=== PATIENT | female | born 1990 | race Caucasian/White ===

== ENCOUNTER 2017-06-26 23:33 | Emergency (ER) | payer BC ==
[2017-06-27 00:04] LABS: CHLORIDE,CL 106 mEq/L (98-106); SODIUM,NA 143 mEq/L (136-145)
--- NOTE | 2017-06-27 00:09 | EDM.PDOC ---
ED HPI GENERAL MEDICAL PROBLEM - General Chief Complaint: Abdominal Pain Stated Complaint: LLQ PAIN Time Seen by Provider: 06/27/17 00:00 Source of Information: Reports: Patient History Limitations: Reports: No Limitations - History of Present Illness INITIAL COMMENTS - FREE TEXT/NARRATIVE: patient presents to ER with a 24 hour history of LLQ pain . States started yesterday and has been getting worse. Initially thought it was period cramps but more severe. Last LMP 05-29-2017. No history of ovarian cysts. She denies vomiting, diarrhea or constipation. No blood in her stools. No fevers. [place] mildly nauseated and dizzy at times. No food intolerance or heartburn. Onset: Gradual Duration: Day(s): Location: Reports: Abdomen Quality: Reports: Sharp Severity: Moderate Associated Symptoms: Reports: Nausea/Vomiting. Denies: Cough, Diaphoresis, Fever/Chills, Loss of Appetite, Seizure, Shortness of Breath Left Lower Abdomen Pain Score (Numeric/FACES): 6 - Related Data Allergies Allergy/AdvReac Type Severity Reaction Status Date / Time No Known Allergies Allergy Verified 06/26/17 23:36 Home Meds: Home Meds . 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: - Past Surgical History Female Surgical History: Reports: Section Musculoskeletal Surgical History: Reports: Other (See Below) Other Musculoskeletal Surgeries/Procedures:: ankle surg Social & Family History - Family History Family Medical History: Noncontributory - Tobacco Use Smoking Status *Q: Never Smoker Second Hand Smoke Exposure: No ED ROS GENERAL - Review of Systems Review Of Systems: See Below Constitutional: Denies: Fever, Chills, Malaise, Weakness, Decreased Appetite HEENT: Reports: No Symptoms Respiratory: Denies: Shortness of Breath, Cough Cardiovascular: Denies: Chest Pain, Edema, Lightheadedness Endocrine: Denies: Fatigue GI/Abdominal: Reports: Abdominal Pain, Nausea. Denies: Black Stool, Bloody Stool, Constipation, Diarrhea, Vomiting : Denies: Dysuria, Frequency, Irregular Menses Musculoskeletal: Reports: No Symptoms Skin: Reports: No Symptoms Neurological: Reports: No Symptoms Psychiatric: Reports: No Symptoms ED EXAM, GENERAL - Physical Exam Exam: See Below Exam Limited By: No Limitations General Appearance: Alert, WD/WN, No Apparent Distress Ears: Normal External Exam, Normal TMs Nose: Normal Inspection, Normal Mucosa, No Blood Throat/Mouth: Normal Inspection, Normal Oropharynx Head: Normocephalic Neck: Normal Inspection, Supple, Non-Tender Respiratory/Chest: No Respiratory Distress, Lungs Clear, Normal Breath Sounds Cardiovascular: Normal Peripheral Pulses, Regular Rate, Rhythm GI/Abdominal: Normal Bowel Sounds, Soft, Tender (LLQ) Extremities: Normal Inspection, Normal Capillary Refill Neurological: Alert, Oriented Psychiatric: Normal Affect, Normal Mood Course - Vital Signs Last Recorded V/S: Last Vital Signs Temp 99 F 06/26/17 23:50 Pulse 77 06/26/17 23:50 Resp 18 06/26/17 23:50 BP 142/85 H 06/26/17 23:50 Pulse Ox 98 06/26/17 23:50 - Orders/Labs/Meds Orders: Active Orders 24 hr Category Date Time Status Abdomen 2V AP Flat Upright [CR] Stat Exams 06/26/17 23:46 Taken Labs: Laboratory Tests 06/26/17 06/26/17 06/26/17 Range/Units 23:45 23:45 23:48 WBC 11.5 H (5.0-10.0) 10^3/uL RBC 4.87 (4.00-5.50) 10^6/uL Hgb 12.4 (12.0-16.0) g/dL Hct 38.2 (37.0-47.0) % MCV 78.4 L (82.0-94.0) fL MCH 25.5 L (27.0-32.0) pg MCHC 32.5 L (33.0-38.0) g/dL RDW Coeff of Ariela 15.8 H (11.0-15.0) % Plt Count 342 (150-400) 10^3/uL Neut % (Auto) 77.4 (35-85) % Lymph % (Auto) 15.9 (10-55) % [place] % (Auto) 5.7 (0-16) % Eos % (Auto) 0.7 (0-5) % Baso % (Auto) 0.3 (0-3) % Neut # (Auto) 8.90 H (1.80-7.00) 10^3/uL Lymph # (Auto) 1.83 (1.00-4.80) 10^3/uL [place] # (Auto) 0.66 (0.00-0.80) 10^3/uL Eos # (Auto) 0.08 (0.00-0.45) 10^3/uL Baso # (Auto) 0.03 10^3/uL Sodium (136-145) mEq/L Potassium (3.5-5.0) mEq/L Chloride (98-106) mEq/L Carbon Dioxide (21-32) mmol/L BUN (7-18) mg/dL Creatinine (0.6-1.0) mg/dL Est Cr Clr Drug Dosing mL/min Estimated GFR (MDRD) (>=60) mL/min Glucose (75-99) mg/dL Calcium (8.4-10.1) mg/dL C-Reactive Protein (0.2-0.8) mg/dL Urine Color Yellow (YELLOW) Urine Appearance Clear (CLEAR) Urine pH 5.5 (4.5-8.0) Ur Specific [place] >= 1.030 H (1.003-1.020) Urine Protein Negative (NEGATIVE) mg/dL Urine Glucose (UA) Negative (NEGATIVE) mg/dL Urine Ketones Negative (NEGATIVE) mg/dL Urine Occult Blood Trace-intact H (NEGATIVE) Urine Nitrite Negative (NEGATIVE) Urine Bilirubin Negative (NEGATIVE) Urine Urobilinogen 0.2 (0.2-1.0) EU/dL Ur Leukocyte Esterase Negative (NEGATIVE) Urine RBC Not seen (0-5) /HPF Urine WBC Not seen (0-5) /HPF Ur Epithelial Cells Few H (NOT SEEN) /HPF Urine Mucus Moderate H (NOT SEEN) /HPF Urine HCG, Qual Negative 06/26/17 Range/Units 23:48 WBC (5.0-10.0) 10^3/uL RBC (4.00-5.50) 10^6/uL Hgb (12.0-16.0) g/dL Hct (37.0-47.0) % MCV (82.0-94.0) fL MCH (27.0-32.0) pg MCHC (33.0-38.0) g/dL RDW Coeff of Ariela (11.0-15.0) % Plt Count (150-400) 10^3/uL Neut % (Auto) (35-85) % Lymph % (Auto) (10-55) % [place] % (Auto) (0-16) % Eos % (Auto) (0-5) % Baso % (Auto) (0-3) % Neut # (Auto) (1.80-7.00) 10^3/uL Lymph # (Auto) (1.00-4.80) 10^3/uL [place] # (Auto) (0.00-0.80) 10^3/uL Eos # (Auto) (0.00-0.45) 10^3/uL Baso # (Auto) 10^3/uL Sodium 143 (136-145) mEq/L Potassium 3.6 (3.5-5.0) mEq/L Chloride 106 (98-106) mEq/L Carbon Dioxide 24 (21-32) mmol/L BUN 12 (7-18) mg/dL Creatinine 0.9 (0.6-1.0) mg/dL Est Cr Clr Drug Dosing 92.11 mL/min Estimated GFR (MDRD) > 60 (>=60) mL/min Glucose 110 H (75-99) mg/dL Calcium 8.4 (8.4-10.1) mg/dL C-Reactive Protein 2.0 H (0.2-0.8) mg/dL Urine Color (YELLOW) Urine Appearance (CLEAR) Urine pH (4.5-8.0) Ur Specific [place] (1.003-1.020) Urine Protein (NEGATIVE) mg/dL Urine Glucose (UA) (NEGATIVE) mg/dL Urine Ketones (NEGATIVE) mg/dL Urine Occult Blood (NEGATIVE) Urine Nitrite (NEGATIVE) Urine Bilirubin (NEGATIVE) Urine Urobilinogen (0.2-1.0) EU/dL Ur Leukocyte Esterase (NEGATIVE) Urine RBC (0-5) /HPF Urine WBC (0-5) /HPF Ur Epithelial Cells (NOT SEEN) /HPF Urine Mucus (NOT SEEN) /HPF Urine HCG, Qual Meds: Medications Discontinued Medications Generic Name Dose Route Start Last Admin Trade Name Freq PRN Reason Stop Dose Admin Ketorolac Tromethamine 60 mg 06/27/17 00:30 06/27/17 00:35 Toradol IM 06/27/17 00:31 60 mg ONETIME ONE Administration Ketorolac Tromethamine Confirm 06/27/17 00:25 06/27/17 00:35 Toradol Administered 06/27/17 00:26 Not Given Dose 60 mg .ROUTE .STK-MED ONE - Re-Assessments/Exams Free Text/Narrative Re-Assessment/Exam: 06/27/17 00:28 Labs reviewed. Mildly elevated CRP and WBC. Will arrange a pelvic ultrasound in am. Departure - Departure Time of Disposition: 00:30 Disposition: Home, Self-Care 01 Clinical Impression: Abdominal pain Qualifiers: Abdominal location: left lower quadrant Qualified Code(s): R10.32 - Left lower quadrant pain - Discharge Information Referrals: Provider,Unknown [Ordering Only Provider] - Forms: ED Department Discharge Additional Instructions: 1. Rest 2. Push fluids 3. Will arrange for pelvic ultrasound in am and notify you of time 4. Tylenol or ibuprofen for discomfort. 5. Follow up for ongoing concerns - My Orders Last 24 Hours: My Active Orders 06/26/17 23:46 Abdomen 2V AP Flat Upright [CR] Stat - Assessment/Plan Last 24 Hours: My Active Orders 06/26/17 23:46 Abdomen 2V AP Flat Upright [CR] Stat
[2017-06-27] MEDS ORDERED: Ketorolac 60 MG/2 ML SDV ONE (00:25)
[2017-06-27 00:27] VITALS: BP 142/85
[2017-06-27] MEDS ORDERED: Ketorolac 60 MG/2 ML SDV IM ONE (00:30)
== END 2017-06-27 00:40 | disposition home or self-care (01) ==
LOC: CC.ED 23:33
DX: R10.32 Left lower quadrant pain (principal)
CPT/HCPCS: 36415; 74020; 80048; 81001; 81025; 85025; 86140; 96372; 99284; J1885; 76830

== ENCOUNTER 2017-08-09 18:06 | Emergency (ER) | payer BC, MEDICAID ==
[2017-08-09 18:08] VITALS: BP 147/89
--- NOTE | 2017-08-09 18:27 | EDM.PDOC ---
ED HPI GENERAL MEDICAL PROBLEM - General Chief Complaint: General Stated Complaint: vertigo Time Seen by Provider: 08/09/17 18:15 Source of Information: Reports: Patient History Limitations: Reports: No Limitations - History of Present Illness INITIAL COMMENTS - FREE TEXT/NARRATIVE: Patient presents today with sudden onset dizziness. 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 She believes it is related to being as the same thing happened to her in the past when she was . She did take a home test which was positive. Last LMP was over a month ago. She denies any head trauma. Has had mild sinus congestion, no facial pain. No fevers. No abdominal pain, diarrhea or urinary symptoms. 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 Denies: Ear Pain, Sinus Problem Respiratory: Denies: Shortness of Breath, Cough Cardiovascular: Denies: Chest Pain, Edema, Lightheadedness Endocrine: Denies: Fatigue GI/Abdominal: Reports: Nausea. Denies: Abdominal Pain, Vomiting : Reports: No Symptoms Musculoskeletal: Reports: No Symptoms Skin: Reports: No Symptoms Neurological: Reports: Dizziness, Headache Psychiatric: Reports: No Symptoms ED EXAM, GENERAL - Physical Exam Exam: See Below Exam Limited By: No Limitations General Appearance: Alert, WD/WN, Mild Distress Eye Exam: Bilateral Eye: EOMI Ears: Normal External Exam, Normal TMs Nose: Normal Inspection Throat/Mouth: Normal Inspection, Normal Oropharynx Head: Normocephalic Neck: Normal Inspection, Supple, Non-Tender Respiratory/Chest: No Respiratory Distress, Lungs Clear, Normal Breath Sounds Cardiovascular: Regular Rate, Rhythm GI/Abdominal: Normal Bowel Sounds, Soft, Non-Tender Extremities: Normal Inspection, Normal Range of Motion Neurological: Alert, Oriented, CN II-XII Intact, Other (No nystagmus noted.) Skin Exam: Warm, Dry Course - Vital Signs Last Recorded V/S: Last Vital Signs Temp 99 F 08/09/17 18:06 Pulse 100 08/09/17 18:06 Resp 18 08/09/17 18:06 BP 147/89 H 08/09/17 18:06 Pulse Ox 99 08/09/17 18:06 - Orders/Labs/Meds Orders: Active Orders 24 hr Category Date Time Status Lactated Ringers [Ringers, Lactated] 1,000 ml Med 08/09/17 18:30 Active IV ASDIRECTED Medication Orders Lactated Ringer's (Ringers, Lactated) 1,000 mls @ 500 mls/hr IV ASDIRECTED GLORIA Last Admin: 08/09/17 18:31 Dose: 500 mls/hr Labs: Laboratory Tests 08/09/17 08/09/17 08/09/17 Range/Units 18:16 18:19 18:19 WBC 9.7 (5.0-10.0) 10^3/uL RBC 4.29 (4.00-5.50) 10^6/uL Hgb 11.0 L (12.0-16.0) g/dL Hct 34.7 L (37.0-47.0) % MCV 80.9 L (82.0-94.0) fL MCH 25.6 L (27.0-32.0) pg MCHC 31.7 L (33.0-38.0) g/dL RDW Coeff of Ariela 16.4 H (11.0-15.0) % Plt Count 289 (150-400) 10^3/uL Neut % (Auto) 71.7 (35-85) % Lymph % (Auto) 19.8 (10-55) % [place] % (Auto) 6.6 (0-16) % Eos % (Auto) 1.6 (0-5) % Baso % (Auto) 0.3 (0-3) % Neut # (Auto) 6.95 (1.80-7.00) 10^3/uL Lymph # (Auto) 1.92 (1.00-4.80) 10^3/uL [place] # (Auto) 0.64 (0.00-0.80) 10^3/uL Eos # (Auto) 0.16 (0.00-0.45) 10^3/uL Baso # (Auto) 0.03 10^3/uL Sodium 139 (136-145) mEq/L Potassium 3.9 (3.5-5.0) mEq/L Chloride 106 (98-106) mEq/L Carbon Dioxide 25 (21-32) mmol/L BUN 9 (7-18) mg/dL Creatinine 0.8 (0.6-1.0) mg/dL Est Cr Clr Drug Dosing 103.63 mL/min Estimated GFR (MDRD) > 60 (>=60) mL/min Glucose 100 H (75-99) mg/dL Calcium 8.6 (8.4-10.1) mg/dL Total Bilirubin 0.2 (0.0-1.0) mg/dL AST 19 (15-37) U/L ALT 29 (12-78) U/L Alkaline Phosphatase 69 (46-116) U/L Total Protein 6.9 (6.4-8.2) g/dL Albumin 2.9 L (3.4-5.0) g/dL Urine Color (YELLOW) Urine Appearance (CLEAR) Urine pH (4.5-8.0) Ur Specific [place] (1.003-1.020) Urine Protein (NEGATIVE) mg/dL Urine Glucose (UA) (NEGATIVE) mg/dL Urine Ketones (NEGATIVE) mg/dL Urine Occult Blood (NEGATIVE) Urine Nitrite (NEGATIVE) Urine Bilirubin (NEGATIVE) Urine Urobilinogen (0.2-1.0) EU/dL Ur Leukocyte Esterase (NEGATIVE) Urine RBC (0-5) /HPF Urine WBC (0-5) /HPF Ur Squamous Epith Cells (NOT SEEN) /HPF Calcium Oxalate Crystal (NOT SEEN) /HPF Urine Bacteria (NOT SEEN) /HPF Urine Mucus (NOT SEEN) /HPF Urine HCG, Qual Positive 08/09/17 Range/Units 18:19 WBC (5.0-10.0) 10^3/uL RBC (4.00-5.50) 10^6/uL Hgb (12.0-16.0) g/dL Hct (37.0-47.0) % MCV (82.0-94.0) fL MCH (27.0-32.0) pg MCHC (33.0-38.0) g/dL RDW Coeff of Ariela (11.0-15.0) % Plt Count (150-400) 10^3/uL Neut % (Auto) (35-85) % Lymph % (Auto) (10-55) % [place] % (Auto) (0-16) % Eos % (Auto) (0-5) % Baso % (Auto) (0-3) % Neut # (Auto) (1.80-7.00) 10^3/uL Lymph # (Auto) (1.00-4.80) 10^3/uL [place] # (Auto) (0.00-0.80) 10^3/uL Eos # (Auto) (0.00-0.45) 10^3/uL Baso # (Auto) 10^3/uL Sodium (136-145) mEq/L Potassium (3.5-5.0) mEq/L Chloride (98-106) mEq/L Carbon Dioxide (21-32) mmol/L BUN (7-18) mg/dL Creatinine (0.6-1.0) mg/dL Est Cr Clr Drug Dosing mL/min Estimated GFR (MDRD) (>=60) mL/min Glucose (75-99) mg/dL Calcium (8.4-10.1) mg/dL Total Bilirubin (0.0-1.0) mg/dL AST (15-37) U/L ALT (12-78) U/L Alkaline Phosphatase (46-116) U/L Total Protein (6.4-8.2) g/dL Albumin (3.4-5.0) g/dL Urine Color Yellow (YELLOW) Urine Appearance Clear (CLEAR) Urine pH 6.0 (4.5-8.0) Ur Specific [place] >= 1.030 H (1.003-1.020) Urine Protein Trace H (NEGATIVE) mg/dL Urine Glucose (UA) Negative (NEGATIVE) mg/dL Urine Ketones Negative (NEGATIVE) mg/dL Urine Occult Blood Negative (NEGATIVE) Urine Nitrite Negative (NEGATIVE) Urine Bilirubin Negative (NEGATIVE) Urine Urobilinogen 0.2 (0.2-1.0) EU/dL Ur Leukocyte Esterase Negative (NEGATIVE) Urine RBC Not seen (0-5) /HPF Urine WBC Not seen (0-5) /HPF Ur Squamous Epith Cells Moderate H (NOT SEEN) /HPF Calcium Oxalate Crystal Many H (NOT SEEN) /HPF Urine Bacteria Few H (NOT SEEN) /HPF Urine Mucus Moderate H (NOT SEEN) /HPF Urine HCG, Qual Meds: Medications Generic Name Dose Route Start Last Admin Trade Name Freq PRN Reason Stop Dose Admin Lactated Ringer's 1,000 mls @ 500 mls/hr 08/09/17 18:30 08/09/17 18:31 Ringers, Lactated IV 500 mls/hr ASDIRECTED GLORIA Administration - Re-Assessments/Exams Free Text/Narrative Re-Assessment/Exam: 08/09/17 19:14 Lab results given. Positive for . Other labs negative except appears dehydrated per urine. 08/09/17 19:50 Patient feeling much improved, visiting with significant other now, resting without any nausea or vomiting. Departure - Departure Time of Disposition: 19:50 Disposition: Home, Self-Care 01 Condition: Good Clinical Impression: Dehydration, mild, - Discharge Information Referrals: PCP,None [Primary Care Provider] - Forms: ED Department Discharge Additional Instructions: 1. Push fluids 2. Schedule initial OB exam 3. Follow up if any ongoing concerns. - My Orders Last 24 Hours: My Active Orders 08/09/17 18:30 Lactated Ringers [Ringers, Lactated] 1,000 ml IV ASDIRECTED - Assessment/Plan Last 24 Hours: My Active Orders 08/09/17 18:30 Lactated Ringers [Ringers, Lactated] 1,000 ml IV ASDIRECTED
[2017-08-09] MEDS ORDERED: Lactated Ringers 1,000 ML IV SCH (18:30)
[2017-08-09 18:52] LABS: CHLORIDE,CL 106 mEq/L (98-106); SODIUM,NA 139 mEq/L (136-145)
== END 2017-08-09 20:35 | disposition home or self-care (01) ==
LOC: CC.ED 18:06
DX: O99.280 Endocrine, nutritional and metabolic diseases complicating pregnancy, unspecified trimester (principal); E86.0 Dehydration; Z98.890 Other specified postprocedural states
CPT/HCPCS: 36415; 80053; 81001; 81025; 85025; 96360; 96361; 99284; J7120

== ENCOUNTER 2017-08-29 21:15 | Emergency (ER) | payer BC, MEDICAID ==
[2017-08-29 21:21] VITALS: BP 151/76
[2017-08-29 21:50] LABS: CHLORIDE,CL 104 mEq/L (98-106); SODIUM,NA 138 mEq/L (136-145)
--- NOTE | 2017-08-29 22:46 | EDM.PDOC ---
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 The patient reports that for the last 3 days she has been having left abdominal pain. Patient reports this pain comes and goes. She reports it is mild 3/10 on the pain scale. The patient reports she is G2, P1, A0. She reports her last was in [place]. Patient reports she has also had lightheadedness since she has been about 9 weeks per patient. Patient reports nausea. She reports mild congestion. Denies krishnan, dizziness, v, d, f, cough, cp, soa, pelvic pain, vaginal bleeding, flank pain. Patient is alert and oriented. Stable. Onset Date: 08/26/17 Duration: Day(s): (3) Location: Reports: Abdomen. Denies: Back, Pelvis Quality: Reports: Ache Severity: Mild Improves with: Reports: None Worsens with: Reports: None Associated Symptoms: Reports: Nausea/Vomiting. 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 Female Surgical History: Reports: Section Musculoskeletal Surgical History: Reports: Other (See Below) Other Musculoskeletal Surgeries/Procedures:: ankle surg Social & Family History - Family History Family Medical History: Noncontributory - Tobacco Use Smoking Status *Q: Never Smoker Second Hand Smoke Exposure: No - Caffeine Use Caffeine Use: Reports: None - Recreational Drug Use Recreational Drug Use: No ED ROS GENERAL - Review of Systems Review Of Systems: See Below Constitutional: Reports: No Symptoms HEENT: Reports: No Symptoms Respiratory: Reports: No Symptoms Cardiovascular: Reports: No Symptoms Endocrine: Reports: No Symptoms GI/Abdominal: Reports: Abdominal Pain, Nausea, Other (No pelvic pain. No vaginal bleeding. No discharge. ). Denies: Vomiting : Reports: No Symptoms Musculoskeletal: Reports: No Symptoms Skin: Reports: No Symptoms Neurological: Reports: No Symptoms Psychiatric: Reports: No Symptoms ED EXAM, GI/ABD - Physical Exam Exam: See Below Exam Limited By: No Limitations General Appearance: Alert, WD/WN, No Apparent Distress Eyes: Bilateral: Normal Appearance Ears: Normal External Exam, Normal Canal, Hearing Grossly Normal, Normal TMs Nose: Normal Inspection, Normal Mucosa, No Blood Throat/Mouth: Normal Inspection, Normal Lips, Normal Teeth, Normal Gums, Normal Oropharynx, Normal Voice, No Airway Compromise Head: Atraumatic, Normocephalic Neck: Normal Inspection, Supple, Non-Tender, Full Range of Motion Respiratory/Chest: No Respiratory Distress, Lungs Clear, Normal Breath Sounds, No Accessory Muscle Use Cardiovascular: Normal Peripheral Pulses, Regular Rate, Rhythm, No Edema, No Gallop, No JVD, No Murmur, No Rub GI/Abdominal Exam: Soft, No Organomegaly, No Distention, No Abnormal Bruit, No Mass, Pelvis Stable, Tender (LLQ, mild. Lateral side mild. ) (Female) Exam: Deferred Rectal (Female) Exam: Deferred Back Exam: Normal Inspection, Full Range of Motion. No: CVA Tenderness (L), CVA Tenderness (R) Extremities: Normal Inspection, Normal Range of Motion, Non-Tender, No Pedal Edema, Normal Capillary Refill Neurological: Alert, Oriented Psychiatric: Normal Affect, Normal Mood Skin Exam: Warm, Dry, Intact, Normal Color, No Rash Lymphatic: No Adenopathy Course - Vital Signs Last Recorded V/S: Last Vital Signs Temp 97.8 F 08/29/17 21:17 Pulse 88 08/29/17 21:17 Resp 18 08/29/17 21:17 BP 151/76 H 08/29/17 21:17 Pulse Ox 100 08/29/17 21:17 - Orders/Labs/Meds Labs: Laboratory Tests 08/29/17 08/29/17 08/29/17 Range/Units 21:45 21:45 21:45 WBC 8.7 (5.0-10.0) 10^3/uL RBC 4.62 (4.00-5.50) 10^6/uL Hgb 11.9 L (12.0-16.0) g/dL Hct 37.3 (37.0-47.0) % MCV 80.7 L (82.0-94.0) fL MCH 25.8 L (27.0-32.0) pg MCHC 31.9 L (33.0-38.0) g/dL RDW Coeff of Ariela 15.6 H (11.0-15.0) % Plt Count 325 (150-400) 10^3/uL Neut % (Auto) 70.0 (35-85) % Lymph % (Auto) 22.6 (10-55) % [place] % (Auto) 6.0 (0-16) % Eos % (Auto) 1.2 (0-5) % Baso % (Auto) 0.2 (0-3) % Neut # (Auto) 6.06 (1.80-7.00) 10^3/uL Lymph # (Auto) 1.96 (1.00-4.80) 10^3/uL [place] # (Auto) 0.52 (0.00-0.80) 10^3/uL Eos # (Auto) 0.10 (0.00-0.45) 10^3/uL Baso # (Auto) 0.02 10^3/uL Sodium 138 (136-145) mEq/L Potassium 3.9 (3.5-5.0) mEq/L Chloride 104 (98-106) mEq/L Carbon Dioxide 27 (21-32) mmol/L BUN 8 (7-18) mg/dL Creatinine 0.8 (0.6-1.0) mg/dL Est Cr Clr Drug Dosing 103.63 mL/min Estimated GFR (MDRD) > 60 (>=60) mL/min Glucose 95 (75-99) mg/dL Calcium 9.2 (8.4-10.1) mg/dL Total Bilirubin 0.1 (0.0-1.0) mg/dL AST 14 L (15-37) U/L ALT 30 (12-78) U/L Alkaline Phosphatase 77 (46-116) U/L Total Protein 7.5 (6.4-8.2) g/dL Albumin 3.3 L (3.4-5.0) g/dL Amylase 36 (25-115) U/L Urine Color Light yellow (YELLOW) Urine Appearance Clear (CLEAR) Urine pH 6.0 (4.5-8.0) Ur Specific [place] 1.025 H (1.003-1.020) Urine Protein Negative (NEGATIVE) mg/dL Urine Glucose (UA) Negative (NEGATIVE) mg/dL Urine Ketones Negative (NEGATIVE) mg/dL Urine Occult Blood Trace-intact H (NEGATIVE) Urine Nitrite Negative (NEGATIVE) Urine Bilirubin Negative (NEGATIVE) Urine Urobilinogen 0.2 (0.2-1.0) EU/dL Ur Leukocyte Esterase Negative (NEGATIVE) Urine RBC Not seen (0-5) /HPF Urine WBC Not seen (0-5) /HPF Ur Squamous Epith Cells Few H (NOT SEEN) /HPF Urine Bacteria Few H (NOT SEEN) /HPF Urine HCG, Qual 08/29/17 Range/Units 21:45 WBC (5.0-10.0) 10^3/uL RBC (4.00-5.50) 10^6/uL Hgb (12.0-16.0) g/dL Hct (37.0-47.0) % MCV (82.0-94.0) fL MCH (27.0-32.0) pg MCHC (33.0-38.0) g/dL RDW Coeff of Ariela (11.0-15.0) % Plt Count (150-400) 10^3/uL Neut % (Auto) (35-85) % Lymph % (Auto) (10-55) % [place] % (Auto) (0-16) % Eos % (Auto) (0-5) % Baso % (Auto) (0-3) % Neut # (Auto) (1.80-7.00) 10^3/uL Lymph # (Auto) (1.00-4.80) 10^3/uL [place] # (Auto) (0.00-0.80) 10^3/uL Eos # (Auto) (0.00-0.45) 10^3/uL Baso # (Auto) 10^3/uL Sodium (136-145) mEq/L Potassium (3.5-5.0) mEq/L Chloride (98-106) mEq/L Carbon Dioxide (21-32) mmol/L BUN (7-18) mg/dL Creatinine (0.6-1.0) mg/dL Est Cr Clr Drug Dosing mL/min Estimated GFR (MDRD) (>=60) mL/min Glucose (75-99) mg/dL Calcium (8.4-10.1) mg/dL Total Bilirubin (0.0-1.0) mg/dL AST (15-37) U/L ALT (12-78) U/L Alkaline Phosphatase (46-116) U/L Total Protein (6.4-8.2) g/dL Albumin (3.4-5.0) g/dL Amylase (25-115) U/L Urine Color (YELLOW) Urine Appearance (CLEAR) Urine pH (4.5-8.0) Ur Specific [place] (1.003-1.020) Urine Protein (NEGATIVE) mg/dL Urine Glucose (UA) (NEGATIVE) mg/dL Urine Ketones (NEGATIVE) mg/dL Urine Occult Blood (NEGATIVE) Urine Nitrite (NEGATIVE) Urine Bilirubin (NEGATIVE) Urine Urobilinogen (0.2-1.0) EU/dL Ur Leukocyte Esterase (NEGATIVE) Urine RBC (0-5) /HPF Urine WBC (0-5) /HPF Ur Squamous Epith Cells (NOT SEEN) /HPF Urine Bacteria (NOT SEEN) /HPF Urine HCG, Qual Positive - Re-Assessments/Exams Free Text/Narrative Re-Assessment/Exam: 08/29/17 22:54 I will not emergently US patient. She has no elevated wbc, no vaginal bleeding, no pelvic pain or cramping, and only 9 wks. No indication of torsion, as no severe pain over ovary on palpation. Patient is in no distress and has had mild discomfort for 3 days. Educated to f/u with PCP or [facility] [employer] [facility]. Patient is also educated that if pain increases that she should return immediately. Departure - Departure Time of Disposition: 22:44 Disposition: Home, Self-Care 01 Condition: Good Clinical Impression: Qualifiers: Weeks of gestation: 9 weeks Qualified Code(s): Z3A.09 - 9 weeks gestation of - Discharge Information Forms: ED Department Discharge Additional Instructions: Followup with your primary care provider Followup with [facility] [facility]: May call [facility] for specialist Return to the ER for worsening of condition or any emergent concerns Increase fluid intake - Assessment/Plan Plan: PLEASE SEE RN NOTE FOR PFSH.
== END 2017-08-29 22:51 | disposition home or self-care (01) ==
LOC: CC.ED 21:15
DX: O99.89 Other specified diseases and conditions complicating pregnancy, childbirth and the puerperium (principal); R10.814 Left lower quadrant abdominal tenderness; Z3A.09 9 weeks gestation of pregnancy
CPT/HCPCS: 36415; 80053; 81001; 81025; 82150; 85025; 99284

== ENCOUNTER 2017-09-19 11:50 | Emergency (ER) | payer BC, MEDICAID ==
[2017-09-19 11:56] VITALS: BP 139/85
--- NOTE | 2017-09-19 12:37 | EDM.PDOC ---
ED HPI GENERAL MEDICAL PROBLEM - General Chief Complaint: Abdominal Pain Stated Complaint: PAIN ON LT SIDE/NAUSEA OFF AND ON Time Seen by Provider: 09/19/17 12:30 Source of Information: Reports: Patient History Limitations: Reports: No Limitations - History of Present Illness INITIAL COMMENTS - FREE TEXT/NARRATIVE: Has been having pain in the left abdomen for about 4 months. Comes and goes. Was evaluated about 3 weeks ago and was found to be constipation. Did feel better after having bowel movement. Pain is similar to previous episodes. Is almost 12 weeks . Is concerned that it may be related even though it started happening prior to getting . 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: - Past Surgical History Female Surgical History: Reports: Section Musculoskeletal Surgical History: Reports: Other (See Below) Other Musculoskeletal Surgeries/Procedures:: ankle surg Social & Family History - Family History Family Medical History: Noncontributory - Tobacco Use Smoking Status *Q: Never Smoker Second Hand Smoke Exposure: No - Caffeine Use Caffeine Use: Reports: None - Recreational Drug Use Recreational Drug Use: No ED ROS GENERAL - Review of Systems Review Of Systems: See Below Constitutional: Reports: No Symptoms Respiratory: Reports: No Symptoms Cardiovascular: Reports: No Symptoms GI/Abdominal: Reports: Abdominal Pain : Reports: Other (Is about 12 weeks ) Musculoskeletal: Reports: No Symptoms ED EXAM, GI/ABD - Physical Exam Exam: See Below Exam Limited By: No Limitations General Appearance: Alert, WD/WN, No Apparent Distress Nose: Normal Inspection Throat/Mouth: Normal Inspection Head: Atraumatic, Normocephalic Neck: Normal Inspection, Supple, Non-Tender, Full Range of Motion Respiratory/Chest: No Respiratory Distress, Lungs Clear, Normal Breath Sounds Cardiovascular: Regular Rate, Rhythm GI/Abdominal Exam: Normal Bowel Sounds, Soft, Non-Tender, No Organomegaly, No Mass. No: Guarding, Rigid, Rebound Skin Exam: Warm, Dry, Intact Course - Vital Signs Last Recorded V/S: Last Vital Signs Temp 97.7 F 09/19/17 11:52 Pulse 103 H 09/19/17 11:52 Resp 16 09/19/17 11:52 BP 139/85 09/19/17 11:52 Pulse Ox 98 09/19/17 11:52 - Orders/Labs/Meds Labs: Laboratory Tests 09/19/17 09/19/17 Range/Units 11:58 12:34 WBC 9.8 (5.0-10.0) 10^3/uL RBC 4.43 (4.00-5.50) 10^6/uL Hgb 11.7 L (12.0-16.0) g/dL Hct 35.8 L (37.0-47.0) % MCV 80.8 L (82.0-94.0) fL MCH 26.4 L (27.0-32.0) pg MCHC 32.7 L (33.0-38.0) g/dL RDW Coeff of Ariela 15.2 H (11.0-15.0) % Plt Count 270 (150-400) 10^3/uL Neut % (Auto) 75.9 (35-85) % Lymph % (Auto) 17.8 (10-55) % [place] % (Auto) 5.4 (0-16) % Eos % (Auto) 0.6 (0-5) % Baso % (Auto) 0.3 (0-3) % Neut # (Auto) 7.47 H (1.80-7.00) 10^3/uL Lymph # (Auto) 1.75 (1.00-4.80) 10^3/uL [place] # (Auto) 0.53 (0.00-0.80) 10^3/uL Eos # (Auto) 0.06 (0.00-0.45) 10^3/uL Baso # (Auto) 0.03 10^3/uL Urine Color Yellow (YELLOW) Urine Appearance Clear (CLEAR) Urine pH 5.5 (4.5-8.0) Ur Specific [place] >= 1.030 H (1.003-1.020) Urine Protein Negative (NEGATIVE) mg/dL Urine Glucose (UA) Negative (NEGATIVE) mg/dL Urine Ketones Negative (NEGATIVE) mg/dL Urine Occult Blood Trace-intact H (NEGATIVE) Urine Nitrite Negative (NEGATIVE) Urine Bilirubin Negative (NEGATIVE) Urine Urobilinogen 0.2 (0.2-1.0) EU/dL Ur Leukocyte Esterase Trace H (NEGATIVE) Urine RBC 0-5 (0-5) /HPF Urine WBC 0-5 (0-5) /HPF Ur Squamous Epith Cells Few H (NOT SEEN) /HPF Urine Bacteria Occasional H (NOT SEEN) /HPF Departure - Departure Time of Disposition: 13:14 Disposition: Home, Self-Care 01 Condition: Good Clinical Impression: Constipation Qualifiers: Constipation type: slow transit constipation Qualified Code(s): K59.01 - Slow transit constipation - Discharge Information Instructions: Constipation, Adult, [id number] Referrals: Karla Rosado PA-C [Primary Care Provider] - Forms: ED Department Discharge Additional Instructions: Push fluids as much as possible Miralax or clearlax daily for constipation IF pain continues then check with your OB DR or come to the clinic - Problem List & Annotations (1) Constipation SNOMED Code(s): 00018011 Code(s): K59.00 - CONSTIPATION, UNSPECIFIED Status: Acute Priority: High Current Visit: Yes Qualifiers: Constipation type: slow transit constipation Qualified Code(s): K59.01 - Slow transit constipation (2) SNOMED Code(s): 95869934 Code(s): Z34.90 - ENCNTR FOR SUPRVSN OF NORMAL , UNSP, UNSP TRIMESTER Status: Acute Priority: Low Current Visit: No Qualifiers: Weeks of gestation: 9 weeks Qualified Code(s): Z3A.09 - 9 weeks gestation of - Problem List Review Problem List Initiated/Reviewed/Updated: Yes
== END 2017-09-19 13:18 | disposition home or self-care (01) ==
LOC: CC.ED 11:50
DX: O99.89 Other specified diseases and conditions complicating pregnancy, childbirth and the puerperium (principal); K59.01 Slow transit constipation; Z3A.12 12 weeks gestation of pregnancy
CPT/HCPCS: 36415; 81001; 85025; 99283

== ENCOUNTER 2018-04-03 13:25 | Inpatient (IN) | payer MEDICAID ==
[2018-04-03] MEDS ORDERED: Albuterol 0.083% 2.5 MG/3 ML Neb Soln NEB ONE (13:45)
[2018-04-03 14:32] LABS: CHLORIDE,CL 107 mEq/L (98-106); SODIUM,NA 141 mEq/L (136-145)
[2018-04-03] MEDS ORDERED: oxyCODONE 5 MG Tab PO PRN (15:18)
[2018-04-03] MEDS ORDERED: Albuterol 0.083% 2.5 MG/3 ML Neb Soln NEB PRN (15:20)
[2018-04-03] MEDS ORDERED: Sodium Chloride 0.9% 10 ML Syringe FLUSH PRN (15:20)
[2018-04-03] MEDS ORDERED: cefTRIAXone 1 GM Vial IVPUSH SCH (15:20)
[2018-04-03] MEDS ORDERED: Azithromycin 500 MG in Sodium Chloride 0.9% 250 ML IV SCH (15:20)
[2018-04-03] MEDS ORDERED: Enoxaparin 40 MG/0.4 ML Syringe SUBCUT SCH (15:25)
--- NOTE | 2018-04-03 15:33 | EDM.PDOC ---
ED HPI GENERAL MEDICAL PROBLEM - General Chief Complaint: Respiratory Problem Stated Complaint: SOB Time Seen by Provider: 04/03/18 13:40 Source of Information: Reports: Patient History Limitations: Reports: No Limitations - History of Present Illness INITIAL COMMENTS - FREE TEXT/NARRATIVE: Denita is a 27 yo female who presents to the ER after initially being seen in the clinic with concerns of shortness of breath. Denita initially became short of breath roughly 11 days ago during her . She states she had spoke with Dr. Leo about the shortness of breath and was advised to follow up with her primary. She was found to being anemic and was started on ferrous sulfate 325mg twice a day. On discharge her Hgb was 7.2. She admits since delivery her shortness of breath gradually worsened. She was seen by myself on Friday, April 01. She stated she was only taking her iron supplementation once a day. On the she had an elevated D-dimer above 13 and we elected to do a CTA of the chest and was found to be negative for PE's. There was some concern of possible infiltrate and she was started on Ceftin. She returned today to the clinic and oxygen saturation was initially 78% after being ambulatory. She was given oxygen at 2 liters, which brought her O2 saturation to 89-90%. She has been afebrile. We elected to send her to the ER for monitoring and nebulizer treatment. 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 Denies: Fever HEENT: Reports: No Symptoms Respiratory: Reports: Shortness of Breath, Cough Cardiovascular: Reports: Dyspnea on Exertion, Lightheadedness. Denies: Chest Pain, Blood Pressure Problem GI/Abdominal: Reports: No Symptoms : Reports: No Symptoms Musculoskeletal: Reports: No Symptoms Neurological: Reports: Dizziness, Headache Psychiatric: Reports: Anxiety ED EXAM, GENERAL - Physical Exam Exam: See Below Exam Limited By: No Limitations General Appearance: Alert, Anxious, Mild Distress Eye Exam: Bilateral Eye: Normal Inspection, PERRL Ears: Normal External Exam, Normal Canal, Hearing Grossly Normal, Normal TMs Nose: Normal Inspection, Normal Mucosa, No Blood Throat/Mouth: Normal Inspection, Normal Lips, Normal Teeth, Normal Gums, Normal Oropharynx, Normal Voice, No Airway Compromise Head: Atraumatic, Normocephalic Neck: Normal Inspection, Supple Respiratory/Chest: Respiratory Distress (mild), Decreased Breath Sounds. No: Crackles, Rales, Rhonchi, Wheezing, Retractions Cardiovascular: Regular Rate, Rhythm, No Edema, No Murmur Extremities: Normal Inspection, No Pedal Edema, Normal Capillary Refill Neurological: Alert, Oriented, Normal Cognition Psychiatric: Anxious. No: Depressed Mood, Tearful Skin Exam: Warm, Dry, Intact, Normal Color EKG INTERPRETATION EKG Date: 04/03/18 Rhythm: NSR Course - Vital Signs Last Recorded V/S: Last Vital Signs Temp 98.9 F 04/03/18 14:53 Pulse 100 04/03/18 14:53 Resp 20 04/03/18 14:53 BP 153/85 H 04/03/18 14:53 Pulse Ox 93 L 04/03/18 14:53 - Orders/Labs/Meds Orders: Active Orders 24 hr Category Date Time Status RT Aerosol Therapy [RC] 0800,1200,1600,2000 Care 04/03/18 13:46 Active Chest 2V [CR] Stat Exams 04/03/18 13:46 Taken EKG 12 Lead [EK] Routine Ther 04/03/18 13:46 Ordered Medication Orders Acetaminophen (Tylenol) 650 mg PO Q4H PRN PRN Reason: Pain (Mild 1-3)/fever Albuterol (Proventil Neb Soln) 2.5 mg NEB Q2H PRN PRN Reason: Shortness Of Breath/wheezing Ceftriaxone Sodium (Rocephin) 1 gm IVPUSH DAILY@1200 [facility] Last Admin: 04/03/18 15:31 Dose: 1 gm Enoxaparin Sodium (Lovenox) 40 mg SUBCUT DAILY@1200 [facility] Last Admin: 04/03/18 15:31 Dose: 40 mg Azithromycin 500 mg/ Sodium (Chloride) 250 mls @ 250 mls/hr IV DAILY@1200 [facility] Non-Formulary Medication (Ferrous Sulfate [Iron]) 325 mg PO BID [facility] Non-Formulary Medication (Prenat Vit Comb.10/Iron/Fa/Dha [Vitafol-Ob + Dha]) 1 each PO DAILY [facility] Oxycodone HCl (Oxycodone) 5 - 10 mg PO Q6H PRN PRN Reason: Pain Sodium Chloride (Saline Flush) 10 ml FLUSH ASDIRECTED PRN PRN Reason: Keep Vein Open Labs: Laboratory Tests 04/03/18 04/03/18 Range/Units 13:46 13:46 WBC 11.0 H (5.0-10.0) 10^3/uL RBC 3.73 L (4.00-5.50) 10^6/uL Hgb 8.6 L (12.0-16.0) g/dL Hct 29.1 L (37.0-47.0) % MCV 78.0 L (82.0-94.0) fL MCH 23.1 L (27.0-32.0) pg MCHC 29.6 L (33.0-38.0) g/dL RDW Coeff of Ariela 18.1 H (11.0-15.0) % Plt Count 287 (150-400) 10^3/uL Neut % (Auto) 83.4 (35-85) % Lymph % (Auto) 11.2 (10-55) % [place] % (Auto) 3.9 (0-16) % Eos % (Auto) 1.2 (0-5) % Baso % (Auto) 0.3 (0-3) % Neut # (Auto) 9.20 H (1.80-7.00) 10^3/uL Lymph # (Auto) 1.23 (1.00-4.80) 10^3/uL [place] # (Auto) 0.43 (0.00-0.80) 10^3/uL Eos # (Auto) 0.13 (0.00-0.45) 10^3/uL Baso # (Auto) 0.03 10^3/uL Sodium 141 (136-145) mEq/L Potassium 3.4 L (3.5-5.0) mEq/L Chloride 107 H (98-106) mEq/L Carbon Dioxide 20 L (21-32) mmol/L BUN 9 (7-18) mg/dL Creatinine 0.8 (0.6-1.0) mg/dL Est Cr Clr Drug Dosing 102.72 mL/min Estimated GFR (MDRD) > 60 (>=60) mL/min Glucose 105 H (75-99) mg/dL Calcium 8.4 (8.4-10.1) mg/dL Total Bilirubin 0.5 (0.0-1.0) mg/dL AST 18 (15-37) U/L ALT 17 (12-78) U/L Alkaline Phosphatase 98 (46-116) U/L C-Reactive Protein 7.1 H (0.2-0.8) mg/dL Total Protein 6.5 (6.4-8.2) g/dL Albumin 2.5 L (3.4-5.0) g/dL Meds: Medications Generic Name Dose Route Start Last Admin Trade Name Freq PRN Reason Stop Dose Admin Acetaminophen 650 mg 04/03/18 15:20 Tylenol PO Q4H PRN Pain (Mild 1-3)/fever Albuterol 2.5 mg 04/03/18 15:20 Proventil Neb Soln NEB Q2H PRN Shortness Of Breath/wheezing Ceftriaxone Sodium 1 gm 04/03/18 15:20 04/03/18 15:31 Rocephin IVPUSH 1 gm DAILY@1200 [facility] Administration Enoxaparin Sodium 40 mg 04/03/18 15:25 04/03/18 15:31 Lovenox SUBCUT 40 mg DAILY@1200 [facility] Administration Azithromycin 500 mg/ Sodium 250 mls @ 250 mls/hr 04/03/18 15:20 Chloride IV DAILY@1200 [facility] Non-Formulary Medication 325 mg 04/03/18 20:00 Ferrous Sulfate [Iron] PO BID [facility] Non-Formulary Medication 1 each 04/04/18 08:00 Prenat Vit Comb.10/Iron/Fa/Dha [Vitafol-Ob + Dha] PO DAILY [facility] Oxycodone HCl 5 - 10 mg 04/03/18 15:18 Oxycodone PO Q6H PRN Pain Sodium Chloride 10 ml 04/03/18 15:20 Saline Flush FLUSH ASDIRECTED PRN Keep Vein Open Discontinued Medications Generic Name Dose Route Start Last Admin Trade Name Freq PRN Reason Stop Dose Admin Albuterol 2.5 mg 04/03/18 13:45 04/03/18 13:25 Proventil Neb Soln NEB 04/03/18 13:46 2.5 mg ONETIME ONE Administration - Re-Assessments/Exams Free Text/Narrative Re-Assessment/Exam: 04/03/18 15:44 Upon arrival to ER Denita was given albuterol neb treatment and oxygen saturation did improve. Currently oxygen saturation is 93% on 5 liters per nasal canula. Departure - Departure Time of Disposition: 15:00 Disposition: Admitted As Inpatient 66 Clinical Impression: Pneumonia Qualifiers: Pneumonia type: due to unspecified organism Laterality: bilateral Lung location : unspecified part of lung Qualified Code(s): J18.9 - Pneumonia, unspecified organism - Discharge Information - Problem List & Annotations (1) Pneumonia SNOMED Code(s): 353710590 Code(s): J18.9 - PNEUMONIA, UNSPECIFIED ORGANISM Status: Acute Current Visit: Yes Qualifiers: Pneumonia type: due to unspecified organism Laterality: bilateral Lung location: unspecified part of lung Qualified Code(s): J18.9 - Pneumonia, unspecified organism - Problem List Review Problem List Initiated/Reviewed/Updated: Yes - My Orders Last 24 Hours: My Active Orders 04/03/18 13:46 RT Aerosol Therapy [RC] 0800,1200,1600,2000 Chest 2V [CR] Stat EKG 12 Lead [EK] Routine - Assessment/Plan Admission H&P: Please use this note as an admission H&P Last 24 Hours: My Active Orders 04/03/18 13:46 RT Aerosol Therapy [RC] 0800,1200,1600,2000 Chest 2V [CR] Stat EKG 12 Lead [EK] Routine Plan: Consulted with Dr. Fry in regards to Denita's condition. Will admit under acute care to his services and closely monitor. X-ray today showed bilateral perihilar infiltrates. Will initiate IV Rocephin and Azithromycin. Blood and sputum cultures pending.
[2018-04-03] MEDS ORDERED: Non-Formulary Medication 1 Each (Ferrous Sulfate [Iron] 325 MG) PO SCH (20:00)
[2018-04-03] MEDS ORDERED: Ferrous Sulfate 324 MG Tab.EC PO ONE (20:31)
[2018-04-03] MEDS: Acetaminophen 325 MG Tab PO PRN (20:37)
[2018-04-03] MEDS: Albuterol/Ipratropium 3.0-0.5 MG/3 ML Neb Soln NEB SCH (20:41)
[2018-04-04] MEDS: Acetaminophen 325 MG Tab PO PRN (03:42)
[2018-04-04 07:25] VITALS: BP 145/88
[2018-04-04] MEDS: Albuterol/Ipratropium 3.0-0.5 MG/3 ML Neb Soln NEB SCH (07:44)
[2018-04-04] MEDS ORDERED: IRON PO SCH (08:00)
[2018-04-04] MEDS ORDERED: PRENAT VIT COMB PO SCH (08:00)
[2018-04-04] MEDS ORDERED: [UNRECOGNIZED DRUG - OTHER] PO SCH (08:00)
[2018-04-04] MEDS ORDERED: Ferrous Sulfate 324 MG Tab.EC PO SCH (08:00)
[2018-04-04] MEDS ORDERED: DHA PO SCH (08:00)
[2018-04-04 08:37] LABS: CHLORIDE,CL 107 mEq/L (98-106); SODIUM,NA 140 mEq/L (136-145)
--- NOTE | 2018-04-04 09:22 | PCM.DCSUM1 ---
Discharge Summary - Hospital Course Free Text/Narrative:: 27 year female with worsening dyspnea, hypoxia with tachycardia. Status post C section 12 days ago. Brief History: 27 year female with worsening shortness of breath for the past 1 week. Pt. had a C section done 12 days ago. Pt. had a CTA done on 04/01/2018 which was negative for PE, however persistent, worsening dyspnea with tachycardia. Pt. has bilateral infiltrates indicated on CXR done on 04/03/18 and started on Rocephin 1gm IV and Azithromax 500 mg IV on 04/08/2018, admitted to [facility]. Pt. is requiring 5 liters of oxygen to maintains oxygen sats >90%. Pt. ambulated this morning with oxygen at 4 liters and sats dropped to 82%. Oxygen was increased to 6 liters and sats improved to 92%. - Discharge Data Discharge Date: 04/04/18 Discharge Disposition: DC/Tfer to Acute Hospital 02 Condition: Stable - Discharge Diagnosis/Problem(s) (1) Hypoxia SNOMED Code(s): 297792660 ICD Code: R09.02 - HYPOXEMIA Status: Acute Current Visit: Yes Onset Date: ~03/30/18 Problem Details: dyspnea with hypoxia, pt. requiring 5 liters of oxygen to keep sats >90%. - Patient Summary/Data Recommended Follow-up Testing/Procedures: CTA - Patient Instructions Diet: Regular Diet as Tolerated - Discharge Plan Home Medications: Home Meds Prenat Vit Comb.10/Iron/Fa/Dha [Vitafol-OB + DHA] 1 each PO DAILY 08/29/17 [ History] Cefuroxime Axetil [Cefuroxime] 250 mg PO BID 04/03/18 [History] Ferrous Sulfate [Iron] 325 mg PO BID 04/03/18 [History] Ibuprofen 200 mg PO Q4H PRN 04/03/18 [History] oxyCODONE 5 - 10 mg PO Q6H PRN 04/03/18 [History] Forms: ED Department Discharge Referrals: PCP,None [Primary Care Provider] - - Discharge Summary/Plan Comment DC Time >30 min.: No Discharge Summary/Plan Comment: 27 year female with worsening shortness of breath for the past 1 week. Patient had a C section 12 days ago. Pt. had a CTA done on 04/01/2018 which was negative for PE, however persistent, worsening dyspnea with tachycardia. Pt. has bilateral infiltrates indicated on CXR yesterday and started on Rocephin 1gm IV and Azithromax 500 mg IV on 04/08/2018. WBC has trended down from 11.1 to 8.9 today, however patient is not improving clinically. Pt. is requiring 5 liters of oxygen to maintains oxygen sats >90%. Pt. ambulated this morning with oxygen at 4 liters and sats dropped to 82%. Oxygen was increased to 6 liters and sats improved to 92%. D. Dimer was repeated yesterday and has trended down to 5.68 from 13.1 on 04/01/2018, however CRP has trended up to 13.1 from 7.1 on . Concerned for possible PE that did not show up on CTA on 04/01/2018. Patient's case was discussed with Dr. Boyd,hospitalist and accepted for admission. Considering patients oxygen requirement, hypoxia, dyspnea with tachycardia that has not improved clinically, patient will be transferred to [facility] where they have ICU and Pulmonology Risks and benefits discussed with patient. Risks include vehicle accident or worsening conditon. 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 Patient verbalizes understanding and agreement with plan. - Patient Data Vitals - Most Recent: Last Vital Signs Temp 36.3 C 04/04/18 07:24 Pulse 90 04/04/18 07:24 Resp 24 H 04/04/18 07:24 BP 145/88 H 04/04/18 07:24 Pulse Ox 92 L 04/04/18 07:24 Weight - Most Recent: 129.591 kg Lab Results - Last 24 hrs: Laboratory Results - last 24 hr 04/03/18 04/03/18 04/03/18 Range/Units 13:46 13:46 19:00 WBC 11.0 H (5.0-10.0) 10^3/uL RBC 3.73 L (4.00-5.50) 10^6/uL Hgb 8.6 L (12.0-16.0) g/dL Hct 29.1 L (37.0-47.0) % MCV 78.0 L (82.0-94.0) fL MCH 23.1 L (27.0-32.0) pg MCHC 29.6 L (33.0-38.0) g/dL RDW Coeff of Ariela 18.1 H (11.0-15.0) % Plt Count 287 (150-400) 10^3/uL Neut % (Auto) 83.4 (35-85) % Lymph % (Auto) 11.2 (10-55) % [place] % (Auto) 3.9 (0-16) % Eos % (Auto) 1.2 (0-5) % Baso % (Auto) 0.3 (0-3) % Neut # (Auto) 9.20 H (1.80-7.00) 10^3/uL Lymph # (Auto) 1.23 (1.00-4.80) 10^3/uL [place] # (Auto) 0.43 (0.00-0.80) 10^3/uL Eos # (Auto) 0.13 (0.00-0.45) 10^3/uL Baso # (Auto) 0.03 10^3/uL D-Dimer, Quantitative 5.68 H (0.00-0.50) Sodium 141 (136-145) mEq/L Potassium 3.4 L (3.5-5.0) mEq/L Chloride 107 H (98-106) mEq/L Carbon Dioxide 20 L (21-32) mmol/L BUN 9 (7-18) mg/dL Creatinine 0.8 (0.6-1.0) mg/dL Est Cr Clr Drug Dosing 102.72 mL/min Estimated GFR (MDRD) > 60 (>=60) mL/min Glucose 105 H (75-99) mg/dL Calcium 8.4 (8.4-10.1) mg/dL Total Bilirubin 0.5 (0.0-1.0) mg/dL AST 18 (15-37) U/L ALT 17 (12-78) U/L Alkaline Phosphatase 98 (46-116) U/L C-Reactive Protein 7.1 H (0.2-0.8) mg/dL Total Protein 6.5 (6.4-8.2) g/dL Albumin 2.5 L (3.4-5.0) g/dL 04/04/18 04/04/18 Range/Units 08:00 08:00 WBC 8.9 (5.0-10.0) 10^3/uL RBC 3.61 L (4.00-5.50) 10^6/uL Hgb 8.3 L (12.0-16.0) g/dL Hct 28.3 L (37.0-47.0) % MCV 78.4 L (82.0-94.0) fL MCH 23.0 L (27.0-32.0) pg MCHC 29.3 L (33.0-38.0) g/dL RDW Coeff of Ariela 18.6 H (11.0-15.0) % Plt Count 279 (150-400) 10^3/uL Neut % (Auto) 77.0 (35-85) % Lymph % (Auto) 17.0 (10-55) % [place] % (Auto) 4.3 (0-16) % Eos % (Auto) 1.4 (0-5) % Baso % (Auto) 0.3 (0-3) % Neut # (Auto) 6.84 (1.80-7.00) 10^3/uL Lymph # (Auto) 1.51 (1.00-4.80) 10^3/uL [place] # (Auto) 0.38 (0.00-0.80) 10^3/uL Eos # (Auto) 0.12 (0.00-0.45) 10^3/uL Baso # (Auto) 0.03 10^3/uL D-Dimer, Quantitative (0.00-0.50) Sodium 140 (136-145) mEq/L Potassium 3.4 L (3.5-5.0) mEq/L Chloride 107 H (98-106) mEq/L Carbon Dioxide 20 L (21-32) mmol/L BUN 8 (7-18) mg/dL Creatinine 0.8 (0.6-1.0) mg/dL Est Cr Clr Drug Dosing 102.72 mL/min Estimated GFR (MDRD) > 60 (>=60) mL/min Glucose 101 H (75-99) mg/dL Calcium 8.1 L (8.4-10.1) mg/dL Total Bilirubin (0.0-1.0) mg/dL AST (15-37) U/L ALT (12-78) U/L Alkaline Phosphatase (46-116) U/L C-Reactive Protein 13.1 H (0.2-0.8) mg/dL Total Protein (6.4-8.2) g/dL Albumin (3.4-5.0) g/dL COURTNEY Results - Last 24 hrs: Microbiology 04/03/18 14:15 Influenza Type A Antigen Screen - Final Nasal Aspirate, Unspecified NEGATIVE INFLUENZA A VIRUS AG Influenza Type B Antigen Screen - Final NEGATIVE INFLUENZA B VIRUS AG Med Orders - Current: Current Medications Acetaminophen (Tylenol) 650 mg PO Q4H PRN PRN Reason: Pain (Mild 1-3)/fever Last Admin: 04/04/18 03:42 Dose: 650 mg Albuterol (Proventil Neb Soln) 2.5 mg NEB Q2H PRN PRN Reason: Shortness Of Breath/wheezing Last Admin: 04/04/18 03:43 Dose: 2.5 mg Albuterol/Ipratropium (Duoneb 3.0-0.5 Mg/3 Ml) 3 ml NEB QIDRT REPLACED BY [facility] Last Admin: 04/04/18 07:44 Dose: 3 ml Ceftriaxone Sodium (Rocephin) 1 gm IVPUSH DAILY@1200 REPL[facility]ED [facility] Last Admin: 04/03/18 15:31 Dose: 1 gm Enoxaparin Sodium (Lovenox) 40 mg SUBCUT DAILY@1200 [facility]PL[facility] Last Admin: 04/03/18 15:31 Dose: 40 mg Ferrous Sulfate (Ferrous Sulfate) 324 mg PO BIDMEALS REPLACED BY [facility] Last Admin: 04/04/18 07:44 Dose: 324 mg Azithromycin 500 mg/ Sodium (Chloride) 250 mls @ 250 mls/hr IV DAILY@1200 [facility]PL[facility]ED [facility] Last Admin: 04/03/18 15:53 Dose: 250 mls/hr Non-Formulary Medication (Prenat Vit Comb.10/Iron/Fa/Dha [Vitafol-Ob + Dha]) 1 each PO DAILY REPLACED BY [facility] Last Admin: 04/04/18 07:47 Dose: Not Given Oxycodone HCl (Oxycodone) 5 - 10 mg PO Q6H PRN PRN Reason: Pain Last Admin: 04/03/18 20:35 Dose: 10 mg Sodium Chloride (Saline Flush) 10 ml FLUSH ASDIRECTED PRN PRN Reason: Keep Vein Open Discontinued Medications Albuterol (Proventil Neb Soln) 2.5 mg NEB ONETIME ONE Stop: 04/03/18 13:46 Last Admin: 04/03/18 13:25 Dose: 2.5 mg Ferrous Sulfate (Ferrous Sulfate) 324 mg PO ONETIME ONE Stop: 04/03/18 20:32 Last Admin: 04/03/18 20:41 Dose: 324 mg Non-Formulary Medication (Ferrous Sulfate [Iron]) 325 mg PO BID [facility] Last Admin: 04/03/18 20:44 Dose: Not Given
== END 2018-04-04 09:50 | DRG 776 ==
LOC: CC.ED 13:25 → CC.MS 14:45 → UNDOADMIN 14:45 → CC.MS 15:14
PROVIDERS: ADMIT Physician Assistant Medical; ATTEND Family Medicine
DX: O99.53 Diseases of the respiratory system complicating the puerperium (principal); J18.9 Pneumonia, unspecified organism; I26.99 Other pulmonary embolism without acute cor pulmonale; O90.81 Anemia of the puerperium; D64.9 Anemia, unspecified; O90.89 Other complications of the puerperium, not elsewhere classified; R06.00 Dyspnea, unspecified; R06.02 Shortness of breath; R53.1 Weakness; R42 Dizziness and giddiness; R06.03 Acute respiratory distress; R09.02 Hypoxemia; O99.43 Diseases of the circulatory system complicating the puerperium; Z79.899 Other long term (current) drug therapy; Z98.891 History of uterine scar from previous surgery
CPT/HCPCS: 36415; 71046; 80053; 85025; 86140; 87804 ×2; 93005; 94640; 99285; J7620; 80048; 85379; 87040; 87070; 87205; A9270-GY; J0456; J0696; J1650; J7050

== ENCOUNTER 2018-12-27 12:42 | Emergency (ER) | payer OTHER, BC, MEDICAID ==
[2018-12-27 12:53] VITALS: BP 130/79
--- NOTE | 2018-12-27 13:16 | EDM.PDOC ---
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 She is employeed at [employer] and reports she was cleaning out the oven with oven strainer cleaner. Reports she was not wearing gloves as they are "out of gloves." Was using "Oven-Karlie" strainer cleaner. She reports following this the tips of her fingers turned red and started to tingling, burn and "feel tight." She reports she became concerned prompting her ED visit. Does feel like they have improved some. She did wash her hands immediately after. CMS intact. No significant redness. Poison control was contacted and recommended treatment as first degree burn. No other recommendations. Onset: Today Onset Date: 12/27/18 Onset Time: 12:00 Duration: Improving Location: Reports: Upper Extremity, Left, Upper Extremity, Right Quality: Reports: Burning, Other (tingling) Severity: Moderate Improves with: Reports: Cold Therapy Associated Symptoms: Reports: No Other Symptoms Bilateral Hand Pain Score (Numeric/FACES): 4 - Related Data Allergies Allergy/AdvReac Type Severity Reaction Status Date / Time No Known Allergies Allergy Verified 12/27/18 12:53 Home Meds: Home Meds . 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 ED EXAM, BURN/SMOKE INHALATION - Physical Exam Exam: See Below Exam Limited By: No Limitations General Appearance: Alert, WD/WN, No Apparent Distress Peripheral Pulses: 2+: Radial (L), Radial (R) Extremities: Normal Range of Motion, Non-Tender, No Pedal Edema, Normal Capillary Refill, Other (mild erythema to distal phalanx of 1-5 fingers bilaterally, CMS intact ). No: Increased Warmth Neurological: Alert, Oriented, CN II-XII Intact, Normal Cognition, Normal Gait, Normal Reflexes, No Motor/Sensory Deficits Course - Vital Signs Last Recorded V/S: Last Vital Signs Temp 96.5 F 12/27/18 12:51 Pulse 94 12/27/18 12:51 Resp 16 12/27/18 12:51 BP 130/79 12/27/18 12:51 Pulse Ox 99 12/27/18 12:51 Departure - Departure Time of Disposition: 13:14 Disposition: Home, Self-Care 01 Condition: Good Clinical Impression: Chemical burn - Discharge Information *PRESCRIPTION DRUG MONITORING PROGRAM REVIEWED*: Not Applicable *COPY OF PRESCRIPTION DRUG MONITORING REPORT IN PATIENT RUSTY: Not Applicable Instructions: Burn Care, Adult, [id number] Forms: ED Department Discharge Additional Instructions: 1) Bacitracin or Aloe Vera to hands as needed for pain. Both can be purchased over the counter. 2) Ensure proper protective wear at work in future 3) Follow up in clinic if symptoms worsen or do not improve
== END 2018-12-27 13:28 | disposition home or self-care (01) ==
LOC: CC.ED 12:42
DX: T65.891A Toxic effect of other specified substances, accidental (unintentional), initial encounter (principal); T23.541A Corrosion of first degree of multiple right fingers (nail), including thumb, initial encounter; T23.542A Corrosion of first degree of multiple left fingers (nail), including thumb, initial encounter; Y99.0 Civilian activity done for income or pay; Y92.511 Restaurant or cafe as the place of occurrence of the external cause; Y93.G1 Activity, food preparation and clean up
CPT/HCPCS: 99283

== ENCOUNTER 2019-04-16 21:58 | Emergency (ER) | payer BC, MEDICAID ==
[2019-04-16 22:07] VITALS: BP 117/73
--- NOTE | 2019-04-16 22:13 | EDM.PDOC ---
ED HPI GENERAL MEDICAL PROBLEM - General Chief Complaint: Back Pain or Injury Stated Complaint: left lower back pain Time Seen by Provider: 04/16/19 22:00 Source of Information: Reports: Patient, Family History Limitations: Reports: No Limitations - History of Present Illness INITIAL COMMENTS - FREE TEXT/NARRATIVE: in with c/o bent over in the refrig and stood up and felt pain in her left lower back, the area is over the sciatic area, no numbness or tingling in leg, has not had the need to void or have a BM since the injury, denies any other sx , sx just before coming to the ED Onset: Today Location: Reports: Back Quality: Reports: Sharp Severity: Severe Improves with: Reports: None Worsens with: Reports: Movement Associated Symptoms: Denies: Chest Pain, Cough, Nausea/Vomiting, Shortness of Breath, Syncope, Weakness 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 Denies: Shortness of Breath Cardiovascular: Reports: No Symptoms. Denies: Chest Pain Endocrine: Reports: No Symptoms : Reports: No Symptoms. Denies: Flank Pain, Pain Musculoskeletal: Reports: Back Pain (left lower back). Denies: Neck Pain Skin: Reports: No Symptoms. Denies: Bruising Neurological: Reports: No Symptoms. Denies: Dizziness, Headache, Numbness, Tingling, Difficulty Walking, Gait Disturbance Psychiatric: Reports: No Symptoms Hematologic/Lymphatic: Reports: No Symptoms Immunologic: Reports: No Symptoms ED EXAM,LOWER BACK PAIN/INJURY - Physical Exam Exam: See Below Exam Limited By: No Limitations General Appearance: Alert, WD/WN, Obese Ears: Normal External Exam Nose: Normal Inspection Throat/Mouth: Normal Inspection, Normal Lips, Normal Voice, No Airway Compromise Head: Atraumatic, Normocephalic Neck: Normal Inspection, Supple, Non-Tender, Full Range of Motion Respiratory/Chest: No Respiratory Distress, Lungs Clear, Normal Breath Sounds, No Accessory Muscle Use, Chest Non-Tender Cardiovascular: Normal Peripheral Pulses, Regular Rate, Rhythm, No Edema, No Murmur GI/Abdominal: Soft, Non-Tender Back Exam: Normal Inspection, Full Range of Motion, Other (pain in left lower back over sciatica area). No: Vertebral Tenderness Extremities: Normal Inspection, Normal Range of Motion, Non-Tender, No Pedal Edema, Normal Capillary Refill Neurological: Alert, Normal Mood/Affect, Normal Gait, No Motor/Sensory Deficits , Oriented x 3 Psychiatric: Normal Affect, Normal Mood Skin Exam: Warm, Dry, Intact, Normal Color Course - Vital Signs Last Recorded V/S: Last Vital Signs Temp 38.4 C H 04/16/19 21:59 Pulse 115 H 04/16/19 21:59 Resp 20 04/16/19 21:59 BP 117/73 04/16/19 21:59 Pulse Ox 100 04/16/19 21:59 - Orders/Labs/Meds Labs: Laboratory Tests 04/16/19 Range/Units 22:20 Urine Color Yellow (YELLOW) Urine Appearance Cloudy (CLEAR) Urine pH 6.5 (4.5-8.0) Ur Specific [place] >= 1.030 H (1.003-1.020) Urine Protein 30 H (NEGATIVE) mg/dL Urine Glucose (UA) Negative (NEGATIVE) mg/dL Urine Ketones Negative (NEGATIVE) mg/dL Urine Occult Blood Negative (NEGATIVE) Urine Nitrite Negative (NEGATIVE) Urine Bilirubin Negative (NEGATIVE) Urine Urobilinogen 0.2 (0.2-1.0) EU/dL Ur Leukocyte Esterase Negative (NEGATIVE) Urine RBC Not seen (0-5) /HPF Urine WBC 5-10 H (0-5) /HPF Ur Squamous Epith Cells Few H (NOT SEEN) /HPF Amorphous Sediment Many H (NOT SEEN) /HPF Urine Bacteria Few H (NOT SEEN) /HPF Urine Mucus Few H (NOT SEEN) /HPF Meds: Medications Discontinued Medications Generic Name Dose Route Start Last Admin Trade Name Kimani PRN Reason Stop Dose Admin Acetaminophen 650 mg 04/16/19 22:17 04/16/19 22:27 Tylenol PO 04/16/19 22:18 650 mg NOW ONE Administration Ketorolac Tromethamine 60 mg 04/16/19 22:18 04/16/19 22:28 Toradol IM 04/16/19 22:19 60 mg ONETIME ONE Administration Prednisone 60 mg 04/17/19 22:20 04/16/19 22:31 Prednisone PO 04/17/19 22:21 60 mg ONETIME ONE Administration Prednisone Confirm 04/16/19 22:18 04/17/19 01:54 Prednisone Administered 04/16/19 22:19 Not Given Dose 60 mg .ROUTE .STK-MED ONE Departure - Departure Time of Disposition: 22:12 Disposition: Home, Self-Care 01 Condition: Good Clinical Impression: Sciatica Qualifiers: Laterality: left Qualified Code(s): - Sciatica, left side - Discharge Information *PRESCRIPTION DRUG MONITORING PROGRAM REVIEWED*: Not Applicable *COPY OF PRESCRIPTION DRUG MONITORING REPORT IN PATIENT RUSTY: Not Applicable Instructions: Sciatica Referrals: PCP,None [Primary Care Provider] - Forms: ED Department Discharge Additional Instructions: increase fluids toradol 10mg every 8 hours as needed for pain #10 robaxin 500mg 3 x a day for 10 days prednisone 50mg 1 x a day for 5 days follow up with your family this week, call Friday for an appointment time return to the ED sooner if worse or problems Care Plan Goals: will dc home with meds as above, will f/u with pcp this week for reevaluation - Problem List & Annotations (1) Sciatica SNOMED Code(s): 80605397 Code(s): M54.30 - SCIATICA, UNSPECIFIED SIDE Status: Acute Priority: Low Qualifiers: Laterality: left Qualified Code(s): M54.32 - Sciatica, left side - Problem List Review Problem List Initiated/Reviewed/Updated: Yes
[2019-04-16] MEDS ORDERED: Acetaminophen 325 MG Tab PO ONE (22:17)
[2019-04-16] MEDS ORDERED: Ketorolac 60 MG/2 ML SDV IM ONE (22:18)
[2019-04-16] MEDS ORDERED: predniSONE 20 MG Tab ONE (22:18)
[2019-04-17] MEDS ORDERED: predniSONE 20 MG Tab PO ONE (22:20)
== END 2019-04-16 23:04 | disposition home or self-care (01) ==
LOC: CC.ED 21:58
DX: M54.42 Lumbago with sciatica, left side (principal)
CPT/HCPCS: 81001; 96372; 99283; A9270; J1885

== ENCOUNTER 2019-07-17 22:07 | Emergency (ER) | payer BC, MEDICAID ==
[2019-07-17] MEDS ORDERED: Cephalexin 500 MG Cap PO ONE (22:08)
--- NOTE | 2019-07-17 22:15 | EDM.PDOC ---
ED HPI GENERAL MEDICAL PROBLEM - General Chief Complaint: Chest Pain Time Seen by Provider: 07/17/19 22:11 Source of Information: Reports: Patient, Family History Limitations: Reports: No Limitations - History of Present Illness INITIAL COMMENTS - FREE TEXT/NARRATIVE: in with c/o cp (heaviness) and sob that started this pm, no abd pain, no nvdc, no unusual neck/back pain or stiffness, no fever or chills. Is 17 weeks gestation and recently dx with pulmonary HTN, is G-3, P-2, A-0, LMP March 2019 and EDC 12-25-19. is scheduled for a repeat echo for reevaluation, denies any ear , nose or throat sx, no calf pain, redness or swelling, no palpitations or irregular heart beat, no vaginal bleeding or spotting, no unusual discharge Onset: Today, Sudden Duration: Hour(s): Location: Reports: Chest Quality: Reports: Pressure ( and heaviness) Severity: Moderate Improves with: Reports: None Worsens with: Reports: None Associated Symptoms: Reports: Chest Pain, Shortness of Breath. 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 Denies: Fever, Chills HEENT: Reports: No Symptoms. Denies: Ear Pain, Nose Pain, Throat Pain Respiratory: Reports: Shortness of Breath. Denies: Wheezing Cardiovascular: Reports: Chest Pain. Denies: Dyspnea on Exertion, Edema, Lightheadedness, Orthopnea, Palpitations Endocrine: Reports: No Symptoms GI/Abdominal: Reports: No Symptoms. Denies: Abdominal Pain, Nausea, Vomiting : Reports: No Symptoms Musculoskeletal: Reports: No Symptoms. Denies: Neck Pain, Back Pain Skin: Reports: No Symptoms. Denies: Bruising, Rash, Erythema Neurological: Reports: No Symptoms. Denies: Dizziness, Headache Psychiatric: Reports: No Symptoms ED EXAM, GENERAL - Physical Exam Exam: See Below Exam Limited By: No Limitations General Appearance: Alert, WD/WN, No Apparent Distress, Obese Ears: Normal External Exam, Hearing Grossly Normal Nose: Normal Inspection Throat/Mouth: Normal Inspection, Normal Lips, Normal Voice, No Airway Compromise Head: Atraumatic, Normocephalic Neck: Normal Inspection, Supple, Non-Tender, Full Range of Motion Respiratory/Chest: No Respiratory Distress, Lungs Clear, Normal Breath Sounds, No Accessory Muscle Use, Chest Non-Tender Cardiovascular: Normal Peripheral Pulses, Regular Rate, Rhythm, No Edema, No Murmur Peripheral Pulses: 2+: Radial (L), Radial (R), Posterior Tibial (L), Posterior Tibial (R) GI/Abdominal: Normal Bowel Sounds, Soft, Non-Tender Back Exam: Normal Inspection, Full Range of Motion Extremities: Normal Inspection, Normal Range of Motion, Non-Tender, No Pedal Edema, Normal Capillary Refill. No: Xander's Sign, Leg Pain, Redness Neurological: Alert, Oriented, Normal Cognition, Normal Gait, No Motor/Sensory Deficits Psychiatric: Normal Affect, Normal Mood Skin Exam: Warm, Dry, Intact, Normal Color, No Rash EKG INTERPRETATION EKG Date: 07/17/19 Time: 22:21 Rhythm: NSR Rate (Beats/Min): 89 [place]: Normal P-Wave: Present QRS: Normal ST-T: Normal QT: Normal EKG Interpretation Comments: SR with a vent rate of 89, non-specific ST changes, no injury or ischemia noted. (recent dx of pulmonary HTN) Course - Vital Signs Last Recorded V/S: Last Vital Signs Temp 37.2 C 07/17/19 22:10 Pulse 89 07/17/19 22:10 Resp 24 H 07/17/19 22:10 BP 122/80 07/17/19 22:10 Pulse Ox 99 07/17/19 22:10 - Orders/Labs/Meds Orders: Active Orders 24 hr Category Date Time Status Chest 1V Frontal [CR] Stat Exams 07/17/19 22:08 Taken CULTURE URINE [RM] Stat Lab 07/17/19 22:41 Received [email or web address] [Rocephin] Med 07/17/19 22:52 Once 2 gm IVPUSH ONETIME ONE Labs: Laboratory Tests 07/17/19 07/17/19 07/17/19 Range/Units 22:25 22:25 22:41 WBC 9.5 (5.0-10.0) 10^3/uL RBC 4.61 (4.00-5.50) 10^6/uL Hgb 12.2 (12.0-16.0) g/dL Hct 36.5 L (37.0-47.0) % MCV 79.2 L (82.0-94.0) fL MCH 26.5 L (27.0-32.0) pg MCHC 33.4 (33.0-38.0) g/dL RDW Coeff of Ariela 14.9 (11.0-15.0) % Plt Count 250 (150-400) 10^3/uL Neut % (Auto) 72.9 (35-85) % Lymph % (Auto) 20.9 (10-55) % [place] % (Auto) 4.4 (0-16) % Eos % (Auto) 1.7 (0-5) % Baso % (Auto) 0.1 (0-3) % Neut # (Auto) 6.94 (1.80-7.00) 10^3/uL Lymph # (Auto) 1.99 (1.00-4.80) 10^3/uL [place] # (Auto) 0.42 (0.00-0.80) 10^3/uL Eos # (Auto) 0.16 (0.00-0.45) 10^3/uL Baso # (Auto) 0.01 10^3/uL Sodium 137 (136-145) mEq/L Potassium 3.9 (3.5-5.0) mEq/L Chloride 103 (98-106) mEq/L Carbon Dioxide 23 (21-32) mmol/L BUN 4 L (7-18) mg/dL Creatinine 0.6 (0.6-1.0) mg/dL Est Cr Clr Drug Dosing 135.75 mL/min Estimated GFR (MDRD) > 60 (>=60) mL/min Glucose 109 H (75-99) mg/dL Calcium 9.3 (8.4-10.1) mg/dL Troponin I < 0.017 (0.00-0.06) ng/mL Urine Color Light yellow (YELLOW) Urine Appearance Slightly cloudy (CLEAR) Urine pH 7.0 (4.5-8.0) Ur Specific Given 1.015 (1.003-1.020) Urine Protein Negative (NEGATIVE) mg/dL Urine Glucose (UA) Negative (NEGATIVE) mg/dL Urine Ketones Negative (NEGATIVE) mg/dL Urine Occult Blood Trace-intact H (NEGATIVE) Urine Nitrite Negative (NEGATIVE) Urine Bilirubin Negative (NEGATIVE) Urine Urobilinogen 0.2 (0.2-1.0) EU/dL Ur Leukocyte Esterase Large H (NEGATIVE) Urine RBC 5-10 H (0-5) /HPF Urine WBC 40-50 H (0-5) /HPF Ur Epithelial Cells Few H (NOT SEEN) /HPF Urine Bacteria Few H (NOT SEEN) /HPF - Radiology Interpretation Free Text/Narrative:: one view cxr completed d/t complaints, abd shield used, R/B explained to pt and she agrees with xray, CXR is neg, compared to previous does have resolution of pneumonia, radiology reading still pending Departure - Departure Time of Disposition: 22:53 Disposition: Home, Self-Care 01 Condition: Good Clinical Impression: Non-cardiac chest pain, UTI (urinary tract infection) Prescriptions: cephALEXin [Keflex] 500 mg PO Q8H 10 Days #30 cap Instructions: Nonspecific Chest Pain, [id number], Antibiotic Medicine, Adult , [id number], Urinary Tract Infection, Adult Forms: ED Department Discharge Additional Instructions: increase fluids Keflex 500mg 3 x a day for 10 days follow up with your OB doctor this week, call Friday for an appointment time return to the ED sooner if worse or problems - Problem List & Annotations (1) Non-cardiac chest pain SNOMED Code(s): 252893442 Code(s): R07.89 - OTHER CHEST PAIN Status: Acute Priority: High (2) UTI (urinary tract infection) SNOMED Code(s): 84915768 Code(s): N39.0 - URINARY TRACT INFECTION, SITE NOT SPECIFIED Status: Acute Priority: High Qualifiers: Indwelling urinary catheter type: unspecified Encounter type: initial encounter - Problem List Review Problem List Initiated/Reviewed/Updated: Yes - My Orders Last 24 Hours: My Active Orders 07/17/19 22:08 Chest 1V Frontal [CR] Stat 07/17/19 22:41 CULTURE URINE [RM] Stat 07/17/19 22:52 cefTRIAXone [Rocephin] 2 gm IVPUSH ONETIME ONE - Assessment/Plan Last 24 Hours: My Active Orders 07/17/19 22:08 Chest 1V Frontal [CR] Stat 07/17/19 22:41 CULTURE URINE [RM] Stat 07/17/19 22:52 cefTRIAXone [Rocephin] 2 gm IVPUSH ONETIME ONE Plan: as above
[2019-07-17 22:45] LABS: CHLORIDE,CL 103 mEq/L (98-106); SODIUM,NA 137 mEq/L (136-145)
[2019-07-17 22:49] VITALS: BP 122/80; PULSE 89
[2019-07-17] MEDS ORDERED: cefTRIAXone 2 GM Vial IVPUSH ONE (22:52)
[2019-07-17] MEDS ORDERED: Take Home: Cephalexin 500 MG Cap, 4 Cap Pack PO ONE (23:00)
== END 2019-07-17 23:15 | disposition home or self-care (01) ==
LOC: CC.ED 22:07
DX: O23.42 Unspecified infection of urinary tract in pregnancy, second trimester (principal); R07.89 Other chest pain; Z3A.17 17 weeks gestation of pregnancy
CPT/HCPCS: 36415; 71045; 80048; 81001; 84484; 85025; 87086; 93005; 96374; 99285-25; A9270-GY; J0696

== ENCOUNTER 2020-11-20 21:58 | Emergency (ER) | payer MEDICAID ==
--- NOTE | 2020-11-20 22:33 | EDM.PDOC ---
ED HPI GENERAL MEDICAL PROBLEM - General Chief Complaint: Chest Pain Stated Complaint: chest pain Time Seen by Provider: 11/20/20 22:33 Source of Information: Reports: Patient - History of Present Illness INITIAL COMMENTS - FREE TEXT/NARRATIVE: Denita is a 30 yo female who presents to the ED with c/o anterior mid chest pain. She reports the pain started at 7 pm this evening. Went to lay down at about 8 and reports this did not help the pain. She reports she just feels weird and wants to make sure its not her heart. Does have hx of pulmonary hypertension. SHe reports she feels shaky but is "not shaking." She reports she feels as though her left arm is spasming. Describes chest pain as a pressure/tightening feeling. She denies any neck pain, abdominal pain, nausea, vomiting, diarrhea, fever, chills, cough, shortness of breath. She does report at times taking a deep breath makes pain worse. No other associated symptoms. Onset: Today Onset Date: 11/20/20 Onset Time: 19:00 Duration: Constant Location: Reports: Chest Quality: Reports: Pressure Severity: Moderate Improves with: Reports: None Worsens with: Reports: Breathing Associated Symptoms: Reports: Chest Pain, Loss of Appetite, Malaise. 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 Respiratory History: Reports: Pneumonia, Recurrent Gastrointestinal History: Reports: GERD Genitourinary History: Reports: None RESIN MIXER History: Reports: Other RESIN MIXER History: x3 Musculoskeletal History: Reports: None Neurological History: Reports: Migraines Psychiatric History: Reports: Anxiety, Depression Hematologic History: Reports: Anemia - Past Surgical History HEENT Surgical History: Reports: None Cardiovascular Surgical History: Reports: None GI Surgical History: Reports: None Female Surgical History: Reports: Section Neurological Surgical History: Reports: None Musculoskeletal Surgical History: Reports: Other (See Below) Other Musculoskeletal Surgeries/Procedures:: ankle surg Social & Family History - Family History Family Medical History: No Pertinent Family History - Tobacco Use Tobacco Use Status *Q: Never Tobacco User Second Hand Smoke Exposure: No - Caffeine Use Caffeine Use: Reports: None - Recreational Drug Use Recreational Drug Use: No ED ROS GENERAL - Review of Systems Review Of Systems: Comprehensive ROS is negative, except as noted in HPI. ED EXAM, GENERAL - Physical Exam Exam: See Below Exam Limited By: No Limitations General Appearance: Alert, WD/WN, No Apparent Distress, Obese Eye Exam: Bilateral Eye: EOMI, PERRL Throat/Mouth: Normal Inspection, Normal Lips, Normal Teeth, Normal Gums, Normal Oropharynx, Normal Voice, No Airway Compromise Head: Atraumatic, Normocephalic Neck: Normal Inspection, Supple, Non-Tender, Full Range of Motion Respiratory/Chest: No Respiratory Distress, Lungs Clear, Normal Breath Sounds, No Accessory Muscle Use, Chest Non-Tender Cardiovascular: Normal Peripheral Pulses, Regular Rate, Rhythm, No Edema, No Gallop, No JVD, No Murmur, No Rub GI/Abdominal: Normal Bowel Sounds, Soft, Non-Tender, No Organomegaly, No Distention, No Abnormal Bruit, No Mass Back Exam: Normal Inspection, Full Range of Motion, NT Extremities: Normal Inspection, Normal Range of Motion, Non-Tender, Normal Capillary Refill, No Pedal Edema Neurological: Alert, Oriented, CN II-XII Intact, Normal Cognition, Normal Gait, Normal Reflexes, No Motor/Sensory Deficits Psychiatric: Normal Affect, Normal Mood Skin Exam: Warm, Dry, Intact, Normal Color, No Rash Lymphatic: No Adenopathy #1 Interpretation EKG Date: 11/20/20 Rhythm: NSR Creede: Normal P-Wave: Present QRS: Normal ST-T: Normal QT: Normal Comparison: No Change Course - Vital Signs Last Recorded V/S: Last Vital Signs Temp 98.0 F 11/20/20 22:51 Pulse 89 11/20/20 22:51 Resp 18 11/20/20 22:51 BP 155/90 H 11/20/20 23:19 Pulse Ox 96 11/20/20 22:51 - Orders/Labs/Meds Orders: Active Orders 24 hr Category Date Time Status Chest 2V [CR] Stat Exams 11/20/20 22:12 Taken Labs: Laboratory Tests 11/20/20 11/20/20 Range/Units 22:10 22:10 WBC 9.1 (5.0-10.0) 10^3/uL RBC 4.83 (4.00-5.50) 10^6/uL Hgb 12.8 (12.0-16.0) g/dL Hct 38.4 (37.0-47.0) % MCV 79.5 L (82.0-94.0) fL MCH 26.5 L (27.0-32.0) pg MCHC 33.3 (33.0-38.0) g/dL RDW Coeff of Ariela 14.5 (11.0-15.0) % Plt Count 260 (150-400) 10^3/uL Neut % (Auto) 67.5 (35-85) % Lymph % (Auto) 25.7 (10-55) % Banks % (Auto) 4.3 (0-16) % Eos % (Auto) 2.3 (0-5) % Baso % (Auto) 0.2 (0-3) % Neut # (Auto) 6.15 (1.80-7.00) 10^3/uL Lymph # (Auto) 2.34 (1.00-4.80) 10^3/uL Banks # (Auto) 0.39 (0.00-0.80) 10^3/uL Eos # (Auto) 0.21 (0.00-0.45) 10^3/uL Baso # (Auto) 0.02 10^3/uL Sodium 136 (136-145) mEq/L Potassium 3.6 (3.5-5.0) mEq/L Chloride 103 (98-106) mEq/L Carbon Dioxide 23 (21-32) mmol/L BUN 10 (7-18) mg/dL Creatinine 0.9 (0.6-1.0) mg/dL Est Cr Clr Drug Dosing 75.61 mL/min Estimated GFR (MDRD) > 60 (>=60) mL/min Glucose 117 H (75-99) mg/dL Calcium 8.9 (8.4-10.1) mg/dL Total Bilirubin 0.1 (0.0-1.0) mg/dL AST 14 L (15-37) U/L ALT 14 (12-78) U/L Alkaline Phosphatase 97 (46-116) U/L Lactate Dehydrogenase 154 (100-190) U/L Creatine Kinase 116 (21-215) U/L Troponin I < 0.017 (0.00-0.06) ng/mL Total Protein 7.6 (6.4-8.2) g/dL Albumin 3.2 L (3.4-5.0) g/dL Lipase 99 (73-393) U/L Meds: Medications Discontinued Medications Generic Name Dose Route Start Last Admin Trade Name Freq PRN Reason Stop Dose Admin Lisinopril 10 mg 11/20/20 23:15 11/20/20 23:19 Prinivil PO 10 mg DAILY GLORIA Administration - Re-Assessments/Exams Free Text/Narrative Re-Assessment/Exam: Labs, EKG, and CXR unremarkable. BP is elevated during ED visit. Departure - Departure Time of Disposition: 23:16 Disposition: Home, Self-Care 01 Condition: Good Clinical Impression: Benign hypertension, Non-cardiac chest pain Prescriptions: lisinopriL [Lisinopril] 10 mg PO DAILY #30 tablet Instructions: Nonspecific Chest Pain, Adult, [id number], Hypertension, Adult, [id number] Referrals: Karla Rosado PA-C [Primary Care Provider] - Forms: ED Department Discharge Additional Instructions: - Recommend starting lisinopril daily for high blood pressure. Script sent to pharmacy. - This could be cause of you feeling shaky/chest pain - Recommend diet/exercise to improve blood pressure - Follow up with Karla Rosado within 5-7 days for recheck - Return to ED for emergent needs Sepsis Event Note (ED) - Evaluation Sepsis Screening Result: No Definite Risk - Problem List & Annotations (1) Benign hypertension SNOMED Code(s): 28460395 Code(s): I10 - ESSENTIAL (PRIMARY) HYPERTENSION Status: Acute (2) Non-cardiac chest pain SNOMED Code(s): 984954820 Code(s): R07.89 - OTHER CHEST PAIN Status: Acute Priority: High - My Orders Last 24 Hours: My Active Orders 11/20/20 22:12 Chest 2V [CR] Stat - Assessment/Plan Last 24 Hours: My Active Orders 11/20/20 22:12 Chest 2V [CR] Stat Assessment:: Benign Hypertension Noncardiac chest pain Plan: 30 yo female presents to the ED with 4 hr episode of chest pain described as pressure. Labs, EKG, and CXR all unremarkable. BP elevated throughout ED visit. Do recommend starting therapy for this. Recommend follow up with PCP in the next 5-7 days for recheck, sooner if pain worsens or does not seem to be improving.
[2020-11-20 22:51] VITALS: BP 155/90; PULSE 89
[2020-11-20 23:00] LABS: CHLORIDE,CL 103 mEq/L (98-106)
[2020-11-20 23:05] LABS: SODIUM,NA 136 mEq/L (136-145)
[2020-11-20] MEDS ORDERED: Lisinopril 10 MG Tab PO SCH (23:15)
== END 2020-11-20 23:23 | disposition home or self-care (01) ==
LOC: CC.ED 21:58
DX: R07.89 Other chest pain (principal); I10 Essential (primary) hypertension; Z79.899 Other long term (current) drug therapy
CPT/HCPCS: 36415; 71046; 80053; 82550; 83615; 83690; 84484; 85025; 93005; 99285-25; A9270-GY